=== PATIENT | female | born 1970 | race Caucasian/White ===

== ENCOUNTER → 2021-04-17 | Outpatient (CLI) | payer OTHER ==
[~2021-04-17] MED LIST: CIPR500 PO; MULVITA PO; NITR100CA PO; OMEP20ER PO; ONDA4 PO; PHENA200 PO
[2021-04-18 08:45] LABS: Stool Occult Bld Immuno 1 Negative (NEGATIVE)
== END | disposition home or self-care (01) ==
LOC: LAB 07:30 → LAB SHORT 07:30
PROVIDERS: Internal Medicine Gastroenterology
DX: Z83.71 Family history of colonic polyps (principal)
CPT/HCPCS: 82274